=== PATIENT | female | born 1935 | race Caucasian/White ===

== ENCOUNTER 2017-10-02 13:03 | Inpatient (IN) | payer OTHER ==
[~2017-10-02] VITALS: Ht 152.4 cm; Wt 61.9 kg
[2017-10-02 15:02] LABS: HEMATOCRIT 37.8 % (36.0-46.0); HEMOGLOBIN 12.8 G/DL (11.9-15.5); MCH 30.1 PG (29.0-34.0); MCHC 33.9 G/DL (30.0-36.0); MCV 88.9 FL (83-99); PLATELET COUNT 284 K/uL (156-360); RBC DIS.WIDTH-CV 12.5 % (11.8-14.6); RBC DIS.WIDTH-SD 40.8 % (39-53); RED BLOOD COUNT 4.25 M/uL (3.80-5.20)
[2017-10-02 15:12] LABS: ALBUMIN 2.9 g/dL (3.2-4.8); CHLORIDE 105 mEq/L (99-109); POTASSIUM 4.5 mEq/L (3.7-5.4); SODIUM 140 mEq/L (136-147)
[2017-10-02 15:14] LABS: GLUCOSE 84 mg/dL (70-99); TOTAL PROTEIN 5.2 g/dL (6.4-8.3)
[2017-10-02 15:16] LABS: TOTAL BILIRUBIN 0.4 mg/dL (0.0-1.0)
[2017-10-02 15:18] LABS: ALKALINE PHOSPHATASE 67 IU/L (3-129); CREATININE 0.9 mg/dL (0.6-1.3)
[2017-10-02 15:19] LABS: UREA NITROGEN (BUN) 20 mg/dL (9-23)
[2017-10-02 15:20] LABS: AST (GOT) 16 IU/L (2-34)
[2017-10-02 15:21] LABS: ALT (GPT) 13 IU/L (3-49)
[2017-10-02 15:26] LABS: GFR ESTIMATE (CALCULATED) > 59 mL/min/
[2017-10-02] MEDS ORDERED: ADULT ASPIRIN R81 MG PO (18:34)
[2017-10-02] MEDS ORDERED: PRAVACHOL40 MG PO (18:34)
[2017-10-02] MEDS ORDERED: LISINOPRIL20 MG PO (18:34)
[2017-10-02] MEDS ORDERED: ANTIVERT25 MG PO (18:35)
[2017-10-02] MEDS ORDERED: TOPROL XL50 MG PO (18:35)
[2017-10-02] MEDS ORDERED: SYNTHROID50 MCG PO (18:35)
[2017-10-02] MEDS ORDERED: FOLIC ACID1 MG PO (18:35)
[2017-10-02 23:00] VITALS: BP 152/73
[2017-10-03 04:10] VITALS: BP 151/68
[2017-10-03 09:48] VITALS: BP 150/67
[2017-10-03] MEDS ORDERED: AMLODIPINE BESYL5 MG PO (11:57)
[2017-10-03 12:16] VITALS: BP 200/80
== END 2017-10-03 13:29 | disposition home or self-care (01) | DRG 305 ==
LOC: EME 13:03 → EDOF 19:39 → ENRESERV 19:52 → 5SOUTH 22:42
PROVIDERS: Emergency Medicine
DX: I16.0 Hypertensive urgency (principal); I10 Essential (primary) hypertension; F03.90 Unspecified dementia, unspecified severity, without behavioral disturbance, psychotic disturbance, mood disturbance, and anxiety; E78.5 Hyperlipidemia, unspecified; E03.9 Hypothyroidism, unspecified; I65.21 Occlusion and stenosis of right carotid artery; Z82.49 Family history of ischemic heart disease and other diseases of the circulatory system; Z66 Do not resuscitate
CPT/HCPCS: 70496; 70498; 76770; 80053; 84443; 85027; 93005; 93975; 99281; 99285; J0295; J0360; J1644; J7030; J7050

== ENCOUNTER 2018-02-04 13:23 | Emergency (ER) | payer OTHER ==
[~2018-02-04] VITALS: Ht 152.4 cm; Wt 62.4 kg
[~2018-02-04 13:23] MED LIST: ADULT ASPIRIN R81 MG PO; AMLODIPINE BESYL5 MG PO; ANTIVERT25 MG PO; FOLIC ACID1 MG PO; LISINOPRIL20 MG PO; PRAVACHOL40 MG PO; SYNTHROID50 MCG PO; TOPROL XL50 MG PO
[2018-02-04 14:23] LABS: BASOPHIL (%) 0.5 % (0-1); BASOPHIL COUNT 0.1 K/uL (0-0.1); EOSINOPHIL (%) 1.5 % (0-5); EOSINOPHIL COUNT 0.2 K/uL (0-0.3); HEMATOCRIT 32.4 % (36.0-46.0); IMMATURE GRANULOCYTE (%) 0.8 % (0.0-0.7); LYMPHOCYTE (%) 9.1 % (15-42); LYMPHOCYTE COUNT 1.3 K/uL (1.0-2.8); MCH 29.6 PG (29.0-34.0); MCV 87.3 FL (83-99); MONOCYTE (%) 9.9 % (3-12); MONOCYTE COUNT 1.4 K/uL (0-0.8); NEUTROPHIL (%) 78.2 % (45-76); NEUTROPHIL COUNT 10.9 K/uL (1.8-6.4); PLATELET COUNT 307 K/uL (156-360); RBC DIS.WIDTH-CV 12.3 % (11.8-14.6); RBC DIS.WIDTH-SD 39.8 % (39-53); RED BLOOD COUNT 3.71 M/uL (3.80-5.20)
[2018-02-04 14:36] LABS: ALBUMIN 3.2 g/dL (3.2-4.8)
[2018-02-04 14:37] LABS: CHLORIDE 103 mEq/L (99-109); POTASSIUM 4.5 mEq/L (3.7-5.4); SODIUM 135 mEq/L (136-147)
[2018-02-04 14:39] LABS: GLUCOSE 135 mg/dL (70-99); TOTAL PROTEIN 6.1 g/dL (6.4-8.3)
[2018-02-04 14:41] LABS: TOTAL BILIRUBIN 0.6 mg/dL (0.0-1.0)
[2018-02-04 14:42] LABS: ALKALINE PHOSPHATASE 82 IU/L (3-129)
[2018-02-04 14:43] LABS: CREATININE 1.2 mg/dL (0.6-1.3); GFR ESTIMATE (CALCULATED) 45 mL/min/
[2018-02-04 14:44] LABS: AST (GOT) 15 IU/L (2-34); UREA NITROGEN (BUN) 29 mg/dL (9-23)
[2018-02-04 14:46] LABS: ALT (GPT) 12 IU/L (3-49); TROP-I INTERPRETATION NEGATIVE; TROPONIN-I < 0.01 ng/mL (0.0-0.30)
[2018-02-04 15:30] LABS: APPEARANCE CLEAR ((CLEAR)); BILIRUBIN NEGATIVE; BLOOD MODERATE; COLOR STRAW ((YELLOW)); GLUCOSE (STRIP) NEGATIVE; KETONES NEGATIVE; LEUKOCYTES NEGATIVE; NITRITE NEGATIVE; PROTEIN (STRIP) 100; SPECIFIC GRAVITY 1.004 (1.000-1.030); UROBILINOGEN 0.2 MG/DL (0.2-1.0)
[2018-02-04 15:37] LABS: BACTERIA RARE /HPF; EPITHELIAL CELLS RARE /HPF; MUCUS NONE SEEN /LPF; RED BLOOD CELLS 0-5 /HPF (0-5); UCUL ADDED? NO; WHITE BLOOD CELLS 0-5 /HPF (0-5)
[2018-02-04 16:19] VITALS: BP 136/67
== END 2018-02-04 16:23 | disposition home or self-care (01) ==
LOC: EME 13:23
PROVIDERS: Emergency Medicine
DX: R50.9 Fever, unspecified (principal); F03.90 Unspecified dementia, unspecified severity, without behavioral disturbance, psychotic disturbance, mood disturbance, and anxiety; I10 Essential (primary) hypertension; Z86.73 Personal history of transient ischemic attack (TIA), and cerebral infarction without residual deficits; E78.5 Hyperlipidemia, unspecified; Z79.82 Long term (current) use of aspirin; Z83.3 Family history of diabetes mellitus
CPT/HCPCS: 71045; 80053; 81003; 83605; 84484; 85025; 87040; 87801; 93005